=== PATIENT | female | born 1950 | race Caucasian/White ===

== ENCOUNTER 2024-08-14 20:30 | Observation (INO) | payer OTHER, SELFPAY ==
[2024-08-14] VITALS (7 sets, daily range): BP systolic 134–197; BP diastolic 64–85; O2SAT 98; BMI 37.6; BMI 37.0
--- NOTE | 2024-08-14 13:30 | ED.GENMED ---
History of Present Illness
<Becky Macedo PA-C - Last Filed: 08/15/24 10:17>
General
Chief Complaint: Fall
Source: patient
Exam Limitations: none
Time Seen by Provider: 08/14/24 13:04
Nursing documentation reviewed up to this point in time: agreed with
History of Present Illness
History of Present Illness:
Patient is a 74-year-old female with history atrial fibrillation not currently anticoagulated presenting to the emergency department via EMS from home after unwitnessed fall. Patient states that around 11 AM she was attempting to get out of bed to
go to the bathroom when she slipped and fell. Patient states she landed on her bottom and did not strike her head. However�patient was too weak to get up on her own and called 911.
Patient states when EMS arrived they assisted her getting up and then she was able to walk out to the ambulance.
Patient denies any pain in her extremities, headache, neck pain, back pain. Patient denies any preceding chest pain, shortness of breath, dizziness/lightheadedness prior to fall. No urinary symptoms.
Patient does state that she feels generally more weak than her baseline.
Patient stopped her Eliquis about a month ago due to insurance difficulty in receiving medication.
Review of Systems
<Becky Macedo PA-C - Last Filed: 08/15/24 10:17>
Review of Systems
Allergies reviewed?: Yes
All Other Systems: ROS reviewed and negative except as documented in HPI and ROS
Phy Exam
<Becky Macedo PA-C - Last Filed: 08/15/24 10:17>
Physical Exam
Physical Exam:
GENERAL: No acute distress
HEENT: atraumatic, extraocular muscles intact, no signs of entrapment, dentition intact, no other obvious trauma
NECK: no midline tenderness, normal range of motion, no other obvious trauma
BACK: no midline tenderness, no other obvious trauma
CHEST: no tenderness, no flail segment, no subcutaneous emphysema, no other obvious trauma
LUNGS: clear to auscultation bilaterally
CARDIOVASCULAR: regular rate and rhythm
ABDOMEN: soft, non-tender, no masses, no other obvious trauma
PELVIS: stable, no obvious injury
EXTREMITIES: moving all extremities, bilateral upper and lower extremities atraumatic and nontender with full range of motion, distal pulses intact, no other obvious trauma. Tremor of bilateral arms which patient states is chronic and stable
NEUROLOGIC: awake, alert x 3, no focal deficits
Course
<Becky Macedo PA-C - Last Filed: 08/15/24 10:17>
Orders/Labs/Results
Orders:
Orders
08/14/24 13:04
EKG [Electrocardiogram (*1)] Urgent
Reason for Study: Fatigue / Weakness
EKG- Treatment ONCE
08/14/24 13:28
CT Cervical Spine W/o Iv Contr Urgent
Comment:
Reason For Exam: unwitnessed fall
CT Head W/o Iv Contrast Urgent
Comment:
Reason For Exam: unwitnessed fall
08/14/24 13:43
Urinalysis Reflex To Culture Urgent
Date Specimen was Collected: 08/14/24
Time Specimen was Collected: 13:38
Urine Microscopic Reflex Cult Urgent
08/14/24 13:48
Basic Metabolic Panel Urgent
Complete Blood Count/With Diff Urgent
Creatine Phosphokinase Urgent
Comment: ADD ON
08/14/24 14:35
0.9% Sodium Chloride 1000 ml [Nss] 1,000 ml IV BOLUS
08/14/24 Dinner
2000 calorie (17 carb) Diabetic
At Your Request: Full Participation
Does patient need a safe tray?: No
Diabetic Diet: Sodium, 2 Gram
08/14/24 16:45
Case Management Consult ONCE
Case Management Consult: Other
Comment: Pretty assistance
08/14/24 20:20
Admit/Transfer Patient As Directed
Co-Sign Provider:
Level of Care: Observation services
Assign to:: Medical/Surgical
Physician / Group: Htay
Diagnosis: Frequent Falls
08/14/24 20:21
Code Status As Directed
Resuscitation Status: Full Code
PRN Pain Medication Management As Directed
May give lesser potent ordered pain med per pt: Yes
preference::
Protocol:: Medication orders for pain may be administered in a
manner that supports deferring to patient preference
when the pt is:
- Requesting an ordered lesser potent pain medication.
Least to most potent pain medications are defined
as: acetaminophen < NSAID < tramadol < opioids
(morphine, oxycodone, hydromorphone).
- Requesting a lesser dose of the same medication IF
ORDERED.
- Requesting a less intrusive route of administration
if both routes are prescribed by the provider (PO <
IV).
08/14/24 21:32
Acetaminophen [Tylenol] 650 mg PO Q4HPRN PRN
Dextrose 50%-Water [Dextrose 50% Syringe] 12.5 grams IV [id number] PRN
Glucagon [GlucaGen] 1 mg IM PRN PRN
08/14/24 21:32
Activity As Directed
Activity Level: Out of Bed- Chair
Bedside Glucose Monitoring As Directed
Frequency: AC&HS
Additional Instructions:: Change to q6h if pt on TPN, tube feeding or not eating
Vital Signs As Directed
Frequency: Per unit guidelines
Weight As Directed
Frequency: Daily
Ot Eval And Treat Routine
Pt Eval And Treat Routine
Activity Level: Out of Bed-Early Mobility
08/15/24 06:00
Glycohemoglobin (HgbA1c) IN AM
08/15/24 07:30
Insulin Aspart Corrective Low [Novolog Flexpen-Low Resistance] See Protocol SC AC
08/15/24 08:00
Apixaban [Eliquis] 5 mg PO BID
Furosemide [Lasix] 20 mg PO DAILY
Glyburide [Micronase] 5 mg PO DAILY
METFORMIN HCl [Glucophage] 500 mg PO BID@0800,1700
Metoprolol [Lopressor] 12.5 mg PO BID
Abnormal Lab Results
08/14/24 08/14/24
13:43 13:48
WBC 11.3 H 10^3/uL
(4.8-10.8)
Hct 36.1 L %
(37.0-47.0)
Abs Immat Gran (auto) 0.1 H 10^3/uL
(0-0.05)
Absolute Neuts (auto) 9.6 H 10^3/uL
(1.4-6.5)
Neutrophils % 84.3 H %
(42.2-75.2)
Lymphocytes % 11.1 L %
(20.5-51.1)
BUN 27 H mg/dl
(7-17)
Urine RBC 3-6 A /HPF
(0-2)
Urine Bacteria (Reflex) Few A
(Negative)
Urine Albumin (Reflex) 1+ A
(Neg - Trace)
08/14/24 13:48
08/14/24 13:48
Vital Signs
Initial and Last Documented VS:
Initial Vital Signs
Temp Pulse Resp Pulse Ox
97.8 F 57 18 99
08/14/24 13:03 08/14/24 13:03 08/14/24 13:03 08/14/24 13:03
Last Documented Vital Signs
Temp Pulse Resp BP Pulse Ox
98 F 73 20 151/77 96
08/15/24 07:31 08/15/24 07:31 08/15/24 07:31 08/15/24 07:31 08/15/24 07:31
<Ricardo Dailey MD - Last Filed: 08/14/24 15:37>
Orders/Labs/Results
Orders:
Orders
08/14/24 13:04
EKG [Electrocardiogram (*1)] Urgent
Reason for Study: Fatigue / Weakness
EKG- Treatment ONCE
08/14/24 13:28
CT Cervical Spine W/o Iv Contr Urgent
Comment:
Reason For Exam: unwitnessed fall
CT Head W/o Iv Contrast Urgent
Comment:
Reason For Exam: unwitnessed fall
08/14/24 13:43
Urinalysis Reflex To Culture Urgent
Date Specimen was Collected: 08/14/24
Time Specimen was Collected: 13:38
Urine Microscopic Reflex Cult Urgent
08/14/24 13:48
Basic Metabolic Panel Urgent
Complete Blood Count/With Diff Urgent
Creatine Phosphokinase Urgent
Comment: ADD ON
08/14/24 14:35
0.9% Sodium Chloride 1000 ml [Nss] 1,000 ml IV BOLUS
08/14/24 Dinner
2000 calorie (17 carb) Diabetic
At Your Request: Full Participation
Does patient need a safe tray?: No
Diabetic Diet: Sodium, 2 Gram
08/14/24 16:45
Case Management Consult ONCE
Case Management Consult: Other
Comment: Elibettieis assistance
08/14/24 20:20
Admit/Transfer Patient As Directed
Co-Sign Provider:
Level of Care: Observation services
Assign to:: Medical/Surgical
Physician / Group: Htay
Diagnosis: Frequent Falls
08/14/24 20:21
Code Status As Directed
Resuscitation Status: Full Code
PRN Pain Medication Management As Directed
May give lesser potent ordered pain med per pt: Yes
preference::
Protocol:: Medication orders for pain may be administered in a
manner that supports deferring to patient preference
when the pt is:
- Requesting an ordered lesser potent pain medication.
Least to most potent pain medications are defined
as: acetaminophen < NSAID < tramadol < opioids
(morphine, oxycodone, hydromorphone).
- Requesting a lesser dose of the same medication IF
ORDERED.
- Requesting a less intrusive route of administration
if both routes are prescribed by the provider (PO <
IV).
08/14/24 21:32
Acetaminophen [Tylenol] 650 mg PO Q4HPRN PRN
Dextrose 50%-Water [Dextrose 50% Syringe] 12.5 grams IV [id number] PRN
Glucagon [GlucaGen] 1 mg IM PRN PRN
08/14/24 21:32
Activity As Directed
Activity Level: Out of Bed- Chair
Bedside Glucose Monitoring As Directed
Frequency: AC&HS
Additional Instructions:: Change to q6h if pt on TPN, tube feeding or not eating
Vital Signs As Directed
Frequency: Per unit guidelines
Weight As Directed
Frequency: Daily
Ot Eval And Treat Routine
Pt Eval And Treat Routine
Activity Level: Out of Bed-Early Mobility
08/15/24 06:00
Glycohemoglobin (HgbA1c) IN AM
08/15/24 07:30
Insulin Aspart Corrective Low [Novolog Flexpen-Low Resistance] See Protocol SC AC
08/15/24 08:00
Apixaban [Eliquis] 5 mg PO BID
Furosemide [Lasix] 20 mg PO DAILY
Glyburide [Micronase] 5 mg PO DAILY
METFORMIN HCl [Glucophage] 500 mg PO BID@0800,1700
Metoprolol [Lopressor] 12.5 mg PO BID
Abnormal Lab Results
08/14/24 08/14/24
13:43 13:48
WBC 11.3 H 10^3/uL
(4.8-10.8)
Hct 36.1 L %
(37.0-47.0)
Abs Immat Gran (auto) 0.1 H 10^3/uL
(0-0.05)
Absolute Neuts (auto) 9.6 H 10^3/uL
(1.4-6.5)
Neutrophils % 84.3 H %
(42.2-75.2)
Lymphocytes % 11.1 L %
(20.5-51.1)
BUN 27 H mg/dl
(7-17)
Urine RBC 3-6 A /HPF
(0-2)
Urine Bacteria (Reflex) Few A
(Negative)
Urine Albumin (Reflex) 1+ A
(Neg - Trace)
08/14/24 13:48
08/14/24 13:48
Vital Signs
Initial and Last Documented VS:
Initial Vital Signs
Temp Pulse Resp Pulse Ox
97.8 F 57 18 99
08/14/24 13:03 08/14/24 13:03 08/14/24 13:03 08/14/24 13:03
Last Documented Vital Signs
Temp Pulse Resp BP Pulse Ox
98 F 73 20 151/77 96
08/15/24 07:31 08/15/24 07:31 08/15/24 07:31 08/15/24 07:31 08/15/24 07:31
<Becky Macedo PA-C - Last Filed: 08/15/24 10:17>
MDM/Problems Addressed
Differential Diagnosis Includes:
Not limited to: Chronic weakness, cardiac arrhythmia, acute dehydration, viral illness, UTI, hypoglycemia, electrolyte abnormality
MDM/Problems Addressed:
74 year old female presenting following unwitnessed fall at home and generalized weakness. Denies any head strike or LOC. Does have history of atrial fibrillation although currently not anticoagulated secondary to insurance coverage of eliquis.
Patient without any complaints at this time. Vitals stable. Physical exam as above. No evidence of head or neck trauma. Bilateral upper and lower extremities atraumatic and nontender with full ROM. Patient A&O x3 with no focal neurologic deficits.
Strength 5/5 in upper and lower extremities. Will check CT head/neck given unwitnessed fall. Will check basic labs, urine given generalized weakness. PT & Case management consult.
EKG shows junctional rhythm without any acute ischemic changes. Labs noted. Urine shows no signs of infection. CT head/cervical spine without any acute abnormalities. PT evaluated patient and recommends safe to go home - steady transfer and
ambulation. Given patients generalized weakness and instability with frequent falls - offered patient admission for weakness/ possible placement which she declined. Case management has provided coupons for eliquis. Will send 30 day supply to
pharmacy. Patient stable for discharge with PCP f/u and return precautions.
Chronic conditions affecting care:
Diabetes mellitus, atrial fibrillation
Acute Exacerbation and/or Progression of Chronic Illness:
N/A
<Becky Macedo PA-C - Last Filed: 08/15/24 10:17>
*Radiology
Radiology exam reviewed: preliminary read by ED provider and radiology read reviewed
*Pulse Oximetry
Patient hypoxic: no
*EKG
Interpreted by ED Provider?: Yes
EKG Intrepretation Date: 08/14/24
Interpretation: abnormal
Comparison EKG: changes noted
Heart Rate: 60
Rate: normal
Rhythm: junctional
Altha: left axis deviation
Interval: normal QT interval
QRS Pattern: right bundle branch block
Ischemia: no ischemia
*Newborn Photographer Interpretation
Rate: Newborn Photographer- N/A
*Critical Care Note
Total Time (30-74mins, 75-104mins- exclusive of procedures): Not Applicable
<Becky Macedo PA-C - Last Filed: 08/15/24 10:17>
Update Note
Update Note:
Update 7:50 PM: Pending discharge and transport - patient shared with RN that she has no running water at her home currently. Patient now states that she does not feel safe going home and she is concerned she will too weak to get to bathroom or
suffer another fall. Will admit patient for weakness and possible repeat CM consult in morning to discuss placement/ discharge options.
ED Attending Note
<Becky Macedo PA-C - Last Filed: 08/15/24 10:17>
-
Portions of this chart may have been created with voice recognition software.� Occasional wrong word or��sound alike� substitutions may have occurred due to the inherent limitations of voice recognition software.
<Ricardo Dailey MD - Last Filed: 08/14/24 15:37>
ED Attending Note
Patient seen and examined by attending physician: Yes
I performed the substantive portion of visit, reviewed & personally made and approve the management plan that is documented in note by myself or NICOLLE.: Yes
ED Attending Note:
I have seen and evaluated the patient with a neal-zs-fury encounter. I have spoken to the [PA] and involved in the medical history, the physical exam, medical decision making.
Evaluation and management service: agree unless noted differently below.
Results interpretation: agree unless noted differently below.
74-year-old woman presenting to the emergency department for weakness. States that she got up and was too weak and slowly fell. She was able to scoot to a phone when she called 911. On their arrival after they assisted her patient was able to
ambulate. She did not hit her head or lose consciousness. Denies any numbness tingling. No weakness. Currently feels back to her baseline. Does lives at home by herself. At this time patient has no medical complaints. During my evaluation
patient is sitting eating a meal. No signs of trauma on head exam or on her extremities. Abdomen is benign and nontender nondistended. Will check blood work and obtain a urine sample and have physical therapy evaluate patient. Anticipate
discharge
Discharge Plan
Departure
Patient Disposition: Admit
Date of Disposition: 08/14/24
Time of Disposition: 16:45
Presentation/result/management discussed w/ accepting MD/DO: Hospitalist
Patient with high blood pressure during this ER visit?: Yes
Condition: Good
Covid-19: Not Applicable
Discharge Problem:
Fall, Weakness, Ambulatory dysfunction
Interventions
Interventions:
*Risk Screen - Suicide Last Done: 08/14/24 21:50
*General Assessment Last Done: 08/14/24 13:03
*Neglect/Abuse Screening Last Done: 08/14/24 13:03
ED- Fall Risk Assessment Last Done: 08/14/24 13:03
*ED COVID-19 Vaccine History Last Done: 08/14/24 21:50
*Nursing Disposition Last Done: 08/14/24 21:15
ED-Musculoskeletal Assessment Last Done: 08/14/24 13:03
ED- Neurological Assessment Last Done: 08/14/24 13:03
ED-Skin Assessment Last Done: 08/14/24 13:03
Discharge Date and Time
Discharge Date/Time: 08/14/24 21:16
[2024-08-14 14:01] LABS: Urine Albumin 1+ (Neg - Trace); Urine Bilirubin Negative (Negative); Urine Character Clear (Clear); Urine Color Yellow; Urine Glucose Negative (Negative); Urine Ketone Negative (Negative); Urine Leukocyte Negative (Negative); Urine Nitrite Negative (Negative); Urine Occult Blood Negative (Negative); Urine Urobilinogen Negative (Neg - 1+); Urine pH 6.5 (5.0-9.0)
[2024-08-14 14:04] LABS: % Basophils 0.4 % (0-2); % Eosinophils 0.4 % (0-6); % Immature Granulocytes 0.4 % (0-0.5); % Lymphocytes 11.1 % (20.5-51.1); % Monocytes 3.4 % (1.7-9.3); % Neutrophils 84.3 % (42.2-75.2); Absolute Basophils 0.1 10^3/uL (0-0.2); Absolute Immature Granulocytes 0.1 10^3/uL (0-0.05); Absolute Lymphocytes 1.3 10^3/uL (1.2-3.4); Absolute Monocytes 0.4 10^3/uL (0.1-0.6); Absolute Neutrophils 9.6 10^3/uL (1.4-6.5); Hematocrit 36.1 % (37.0-47.0); Hemoglobin 12.3 g/dL (12.0-16.0); Mean Corp Hgb Conc. 34.1 g/dL (33.0-37.0); Mean Corpuscular Hgb 29.1 pg (27.0-31.0); Mean Corpuscular Volume 85.3 fL (81.0-99.0); Mean Platelet Volume 9.9 fL (7.4-10.4); Nucleated Red Blood Cells % 0 %; Platelet Count 229 10^3/uL (130-400); Red Blood Cell Count 4.23 10^6/uL (4.20-5.40); Red Cell Dist. Width 12.6 % (11.5-14.5); White Blood Cell Count 11.3 10^3/uL (4.8-10.8)
[2024-08-14 14:14] LABS: Blood Urea Nitrogen 27 mg/dl (7-17); Calcium 9.7 mg/dl (8.4-10.2); Carbon Dioxide 26 mmol/L (22-30); Chloride 104 mmol/L (98-107); Estimated Creatinine Clearance 70 ml/min; Glucose 74 mg/dl (70-99); Potassium 4.6 mmol/L (3.5-5.1); Sodium 143 mmol/L (135-145); eGFR > 60.00
[2024-08-14 14:15] LABS: Urine Mucus Few
[2024-08-14 14:16] LABS: Urine Squamous Cell 21-25 /LPF (Few)
[2024-08-14 14:18] LABS: Urine Bacteria Few (Negative)
[2024-08-14] MEDS: NSS 1000 IV (15:11)
[2024-08-14 16:43] LABS: Creatine Phosphokinase 86 U/L (30-135)
--- NOTE | 2024-08-14 17:01 | CM ---
Addendum entered by Myla Pace 08/14/24 18:26:
Referral to [facility] placed for patient's water issues in the home.
Addendum entered by Myla Pace 08/14/24 18:09:
Also set up SN and PT eval with [facility].
Addendum entered by Myla Pace 08/14/24 18:07:
Patient was given 2 Eliquis coupons, when discussing how she will be transported to the pharmacy.
Addendum entered by Myla Pace 08/14/24 17:56:
Spoke with lathe setup operator who will send over a message to patient's office about following up with Mar[facility].
Addendum entered by Myla Pace 08/14/24 17:52:
PCP: [facility] in [place], [place].
Addendum entered by Myla Pace 08/14/24 17:44:
CM reviewed chart. Introduced self and role. Patient lives alone. She reported that she felt scared because she wasn't able to get up. She felt like she was going to alone. I asked her if she looked into [employer]. She stated it would be about
200$/month and she not able to affored that. She said she has no more family around. She has someone who does her groceries and brings her gallons of water in order for her sept pump to work.
She said that she receives her medications by mail order. She was only paying $46 for her Eliquis. For some reason, it has increased to $126 and she isn't able to afford it. It was hard to decipher (while she was sharing her story) if the insurance
company stopped sending the medication because of the arteaga increase or if her PCP discontinued it because she shared she could not afford.
Patient stated that she uses [facility] in [place], [place]. Requested for JOSE to send eliquis rx to that pharmacy. Patient stated that she absolutely has no one to drive her. CM explained that she has free rides, for reasons like this, from her
insurance. She shared that she tries not to use too much from the government. THAIS explained these are allotted rides, specifically for her.
THAIS shared above with JOSE. CM will also call patient's doctor's office; she will need an appointment to figure out what anticoagulant is best for her.
Original Note:
CM consult placed due to patient no longer taking her eliquis.
--- NOTE | 2024-08-14 20:23 | HPS.HSE ---
Addendum entered and electronically signed by George Pettit MD 08/14/24 20:41:
I saw and examined the patient.
The PAINTER STRUCTURAL STEEL or PA's note was reviewed and I agree with the note.
Comment:
This note serves as an addendum to the H&P by wardrobe specialty worker NICOLLE Harleen CLARKE
HPI
74F Home alone, HX frequent falls, DMT2, diabetic neuropathy , Prx AF on Eliquis, , HX successful DCCV . HX nl LVEF 55% seen at ER for weakness and recurrent Falls.
- report slipped and fall in the BR. landed on her bottom. Denied hitting head.
- 911 called [facility].
- EMS arrived they assisted her getting up and then she was able to walk out to the ambulance.
Reviewed VS: unremarkable
Vital Signs
Temp Pulse Resp BP Pulse Ox
97.8 F 78 16 134/85 98
08/14/24 13:03 08/14/24 20:03 08/14/24 20:03 08/14/24 20:03 08/14/24 20:03
LE:
Symmetrically moving all extremities
All 4 extremities are atraumatic and nontender with full range of motion,e
Data
08/14/24
13:48
WBC 11.3 H
BUN 27 H
Creatinine 0.9
eGFR > 60.00
HCT: No acute patho
CX spine CT: No CT evidence for an acute posttraumatic abnormality of the cervical spine.
EKG report
JUNCTIONAL RHYTHM
INCOMPLETE RIGHT BUNDLE BRANCH BLOCK
LEFT ANTERIOR FASCICULAR BLOCK
ABNORMAL ECG
WHEN COMPARED WITH ECG OF 29-JUN-2023 10:56,
JUNCTIONAL RHYTHM HAS REPLACED SINUS RHYTHM
INCOMPLETE RIGHT BUNDLE BRANCH BLOCK IS NOW PRESENT
Last hospitalist admission:
Date of Admission: 06/26/23 -Date of Discharge: 07/02/23
ASSESSMENT & PLAN
Recurrent fall without acute complication
Unremarkable labs. NEG HCT. NEG CX spine CT.
HX Multiple falls with admission
Chr gait dysfunction
Suspect DM neuropathy
HX DMT2
HX Prx AF on Eliquis
Home alone and no running water
- PT/OT
- CRM consult for johnathan disposition
- c/w all OP Meds
DVT Px: on chr eliquis
Full code
Obs MS
Original Note:
Family Physician
-
Family Physician: Dina Friend
Chief Complaint
-
Frequent Falls
History of Present Illness
Patient is a 74 y/o female past medical history of paroxysmal atrial fibrillation, and diabetes mellitus who presents with frequent falls. Patient fell earlier today while attempting to get into her wheelchair. She was unable to get up off the
floor and called 911 for assistance. She denies chest pains, palpitations, dizziness or shortness of breath. She denies hitting her head during the event. Patient lives alone and expresses concern about being able to safely return home tonight.
Medical History
Past Medical History
Past Medical History: Reports Other
Additional Past Medical History:
Paroxysmal Atrial Flutter
Diabetes Mellitus, Type II
Diabetic Neuropathy
Past Surgical History: Reports None
Social History
Tobacco: Non-smoker
Alcohol: None
Living: Alone
Family History
Family History: Not pertinent
Allergies / Home Medications
Allergies reflects when Allergies were last updated in [employer].
Home Medications with original date entered in [facility]
Allergy/Medication List:
Allergies
Allergy/AdvReac Type Severity Reaction Status Date / Time
No Known Allergies Allergy Verified 08/14/24 13:05
Home Medications
glyburide 5 mg tablet 5 mg PO DAILY #30 tabs 07/02/23
metformin 500 mg tablet 500 mg PO BID@0800,1700 #60 tabs 07/02/23
apixaban 5 mg tablet (Eliquis) 5 mg PO BID #30 tabs 08/14/24
furosemide 20 mg tablet 20 mg PO DAILY 08/14/24
metoprolol tartrate 25 mg tablet 12.5 mg PO BID 08/14/24
Review of Systems
-
A 12 point ROS was completed and negative except as noted: Yes
Constitutional: Denies Fever or Chills
Respiratory: Denies Cough or Trouble Breathing
Cardiac: Denies Chest Pain or Palpitations
Abdomen/GI: Denies Abdominal Pain, Nausea, Vomiting or Diarrhea
Physical Exam
Vital Signs
Vital Signs
Temp Pulse Resp BP Pulse Ox
97.8 F 78 16 134/85 98
08/14/24 13:03 08/14/24 20:03 08/14/24 20:03 08/14/24 20:03 08/14/24 20:03
Physical Exam
General: Comfortable and Conversant
HEENT: Anicteric and Moist mucous membranes
Respiratory: Clear and Non Labored Respirations
Cardiac: S1/S2 and Regular Rhythm
GI: Soft and Non Tender
Rectal: Deferred by Provider
Musculoskeletal: No Clubbing, No Cyanosis and Other (+1 Non-pitting Bilateral Lower Extremity)
Skin: Warm and Dry
Neuro: Awake, Alert, Oriented and Nonfocal/grossly intact
Psych: Calm
Laboratory Results
-
08/14/24 13:48
08/14/24 13:48
Data Reviewed
-
Lab Data: Labs Reviewed by me
Impression/Plan
-
Ambulatory Dysfunction
-Consult PT/OT
-Consult Case Management
Paroxysmal Atrial Flutter
-Patient stopped taking Eliquis about a month ago due to cost - Resume Eliquis
-Continue Metoprolol for rate control
Diabetes Mellitus, Type II
-Continue metformin and glyburide
-Check HgbA1c
-Monitor sugars and continue coverage insulin
Chronic Lower Extremity Edema
-Continue furosemide
Class 2 Obesity
-Affects all aspects of care
DVT proph: Eliquis
Code Status: Full Code
[2024-08-14 21:27] LABS: Glucose - Point of Care 88 mg/dl (70-99)
--- NOTE | 2024-08-15 00:44 | PTCARENOTE ---
Pt received at 2129. Pt able to stand and pivot from stretcher to bed. Pt AAOx3 no c/o pain and able to make needs known. Pt oriented to room,call you, and TV. POC discussed.
[2024-08-15 06:00] VITALS: BMI 36.8
[2024-08-15 07:31] VITALS: BP 151/77
[2024-08-15 07:45] LABS: Glucose - Point of Care 93 mg/dl (70-99)
[2024-08-15] MEDS: LOPRESSOR 12.5 MG PO ×2 (07:46→20:18)
[2024-08-15] MEDS: MICRONASE 5 MG PO (07:46)
[2024-08-15] MEDS: GLUCOPHAGE 500 MG PO ×2 (07:47→18:19)
[2024-08-15] MEDS: ELIQUIS 5 MG PO ×2 (07:47→20:11)
[2024-08-15] MEDS: LASIX 20 MG PO (07:47)
[2024-08-15 09:28] VITALS: BP 150/66; PULSE 59; O2SAT 97
--- NOTE | 2024-08-15 09:37 | PTOTSP ---
pt currently demonstrates ability to complete simple ADLs, functional transfers, ambulation with supervision to no assistance. no acute OT needs identified, will sign off at this time.
[2024-08-15 11:19] LABS: Glucose - Point of Care 125 mg/dl (70-99)
[2024-08-15 11:26] LABS: Glycohemoglobin (HgbA1c) 5.2 % (4.0-5.6)
--- NOTE | 2024-08-15 12:08 | W.PN.HOSP.TC ---
Today's Communication/Plan
-
PT/OT
Discharge with home PT
Provide Eliquis card
Assessment / Plan
Assessment / Plan
#Ambulatory dysfunction
#Chronic neuropathy
-PT/OT/case management
-Patient prefers home physical therapy
#Paroxysmal Atrial Flutter
-Medications include Eliquis and metoprolol
-Stop taking Eliquis roughly a month ago as she ran out/could not afford
-Will resume Eliquis and provide Eliquis card at discharge
-Heart rates stable
#T2DM with neuropathy
-Hemoglobin A1c here 5.2%; Home medications include metformin and glyburide
-Complicated by bilateral lower extremity neuropathy
-Remains on home medications with ISS and Accu
-Will likely discontinue glyburide at discharge
-Blood glucose goal 1 40�1
#Chronic venous insufficiency
-Continue furosemide
#Class 2 Obesity
-Affects all aspects of care
-BMI 36.8
DVT proph: Eliquis
Diet: Diabetic diet
Code Status: Full Code
Anticipated Discharge: Today
Subjective/Interval History
-
Date of Service: August 15, 2024
Seen and examined at bedside. No acute events reported overnight. AFVSS this morning.
She denies any acute complaints, states she would prefer to do physical therapy at home relative to a SNF
Denies chest pain, dyspnea, fevers or chills, weakness, GI issues, urinary issues, bleeding or bruising.
Objective Data
-
Vital Signs:
Vital Signs
Temp Pulse Resp BP Pulse Ox
98 F 73 20 151/77 96
08/15/24 07:31 08/15/24 07:31 08/15/24 07:31 08/15/24 07:31 08/15/24 07:31
I&O
08/14/24 08/15/24 08/16/24
06:59 06:59 06:59
Intake Total 720 / 720
Balance 720 / 720
Review of Systems
-
History Source: Patient
All other systems: Reviewed and negative
Physical Exam
-
General: No Apparent Distress, Comfortable, Conversant and Obese
HEENT: Normocephalic, Atraumatic and Moist Mucous Membranes
Respiratory: Clear to Auscultation and Non Labored Respirations; Negative Accessory Resp Muscle Use
Cardiac: Regular Rhythm and S1/S2; Negative Murmur, Rub or Gallop
GI: Soft, Nontender and Nondistended
Musculoskeletal: No Clubbing, No Cyanosis and No Edema
Skin: Warm, Dry and Normal Turgor; Negative Rash
Neuro: AO x 3, Nonfocal/Grossly Intact and Central Nerve's Intact
Psych: Calm
Data Reviewed
-
Labs: Labs Reviewed by me and Discussed with Patient
[2024-08-15] MEDS: PEPTO-BISMOL 2 TABLET PO (12:55)
--- NOTE | 2024-08-15 13:38 | CM ---
[facility] letter provided to patient and signed and placed on chart, patient reports that she lives alone in a 2 story home, with 1st floor set up, patient is independent with adl's and ambulation, patient has a walker, rollator, and w/c in home, patient
has a car that she does not drive, rn case manager hospice provided patient with information on [facility] ([facility]), per PT/OT patient has no skilled needs.
Plan; Home today with [facility], rn case manager hospice checked with patient's pharmacy [facility], and cost of Eliquis is $23.40 per month.
Home with VN.
[2024-08-15 13:55] VITALS: BP 156/60
--- NOTE | 2024-08-15 15:19 | VNURNOTE ---
Home Health Liaison spoke with patient to discuss [facility] nurse/therapy, visits, schedule and homebound status. Patient is agreeable and understands that visits at home will be 2-3 x per week to assess and teach medical management. Unclear of a
skilled nurse need, home PT /OT evaluation. Patient is aware that [facility] will contact them for start of care in 1-2 days after discharge from .
[facility] referral accepted in [facility].
[2024-08-15 15:26] VITALS: BP 137/52
[2024-08-15 16:00] LABS: Glucose - Point of Care 82 mg/dl (70-99)
[2024-08-15 20:37] LABS: Glucose - Point of Care 114 mg/dl (70-99)
[2024-08-15 23:55] VITALS: BP 150/56
[2024-08-16 06:00] VITALS: BMI 36.6
[2024-08-16 07:19] LABS: Glucose - Point of Care 76 mg/dl (70-99)
[2024-08-16] MEDS: ELIQUIS 5 MG PO (07:24)
[2024-08-16] MEDS: LOPRESSOR 12.5 MG PO (07:25)
[2024-08-16] MEDS: MICRONASE 5 MG PO (07:25)
[2024-08-16] MEDS: GLUCOPHAGE 500 MG PO (07:26)
[2024-08-16] MEDS: LASIX 20 MG PO (07:26)
[2024-08-16 07:37] VITALS: BP 153/64
--- NOTE | 2024-08-16 09:24 | W.PN.HOSP.TC ---
Today's Communication/Plan
-
Discharge home with PT and visiting nurse
Assessment / Plan
Assessment / Plan
#Ambulatory dysfunction
#Chronic neuropathy
-PT/OT/case management
-Patient prefers home physical therapy
#Paroxysmal Atrial Flutter
-Medications include Eliquis and metoprolol
-Stop taking Eliquis roughly a month ago as she ran out/could not afford
-Will resume Eliquis and provide Eliquis card at discharge
-Heart rates stable
#T2DM with neuropathy
-Hemoglobin A1c here 5.2%; Home medications include metformin and glyburide
-Complicated by bilateral lower extremity neuropathy
-Remains on home medications with ISS and Accu
-Will likely discontinue glyburide at discharge
-Blood glucose goal 1 40�1
#Chronic venous insufficiency
-Continue furosemide
#Class 2 Obesity
-Affects all aspects of care
-BMI 36.8
DVT proph: Eliquis
Diet: Diabetic diet
Code Status: Full Code
Anticipated Discharge: Today
Subjective/Interval History
-
Date of Service: August 16, 2024
Seen and examined at the bedside. No acute events reported overnight. AFVSS this morning
Was seen by PT yesterday, will arrange for home PT and VN
Denies any acute complaints this morning, states she feels much more steady than yesterday
Objective Data
-
Vital Signs:
Vital Signs
Temp Pulse Resp BP Pulse Ox
98.3 F 51 18 153/64 97
08/16/24 07:37 08/16/24 07:37 08/16/24 07:37 08/16/24 07:37 08/16/24 07:37
I&O
08/15/24 08/16/24 08/17/24
06:59 06:59 06:59
Intake Total 720 / 720 960 / 960
Balance 720 / 720 960 / 960
Review of Systems
-
History Source: Patient
All other systems: Reviewed and negative
Physical Exam
-
General: Well Nourished, No Apparent Distress and Comfortable
HEENT: Normocephalic, Atraumatic and Moist Mucous Membranes
Respiratory: Clear to Auscultation and Non Labored Respirations
Cardiac: Regular Rhythm and S1/S2; Negative Murmur
GI: Soft, Nontender, Nondistended and Normal Bowel Sounds
Musculoskeletal: No Clubbing, No Cyanosis and No Edema
Skin: Warm and Dry; Negative Rash
Neuro: AO x 3, Nonfocal/Grossly Intact and Central Nerve's Intact
Psych: Calm
--- NOTE | 2024-08-16 09:26 | W.DCSUMMARY ---
Discharge Summary
Discharge Data
Date of Admission: 08/14/24
Date of Discharge: 08/16/24
-
Pending Results: No
Hospital Course
73-year-old female with T2DM C/B neuropathy, paroxysmal AF on Eliquis, chronic venous insufficiency and leukocytosis that presented to the hospital with ambulatory dysfunction, fall from her bed while trying to get into a wheelchair at home.
Neurological assessment in the hospital was unremarkable. Suspected etiology due to neuropathy and deconditioning with time. Was seen by physical therapy who recommended home with PT. Case management consulted for arranging home services
including PT and visiting nurse. Was given new prescription for Eliquis as she had recently run out and stopped taking. Was encouraged to follow-up with PCP, resources provided for cheaper prescription options.
Discharge Plan
-
Patient Disposition: Home (Routine Discharge)
Discharge Diagnosis/Procedures: Ambulatory dysfunction
Diabetic neuropathy
Condition: Good
Diet: Diabetic, Carb Controlled
Activity: As tolerated
Additional Activity: Exercises per physical therapy
Driving Restrictions: Not until seen by your Dr
Bathing Restrictions: None
Blood Work: None
Others Tests: None
Other Services: PT
Activity Restrictions/Additional Instructions:
Schedule follow-up appointment with your family doctor within 7 days of discharge from the hospital for routine posthospital care
Instructions: Preventing falls in adults, Standing Balance Exercises, Beginner
Referrals:
Dina Friend DO [Family Provider] -
Additional Discharge Medication Instructions: Take Eliquis 5 mg twice daily
Talk to your family doctor about stopping diabetes medications (A1c 5.2% in the hospital)
Prescriptions:
New
Eliquis 5 mg tablet
5 mg PO BID Qty: 30 0RF
Continued
metformin 500 mg Tablet
500 mg PO BID@0800,1700 Qty: 60 1RF
glyburide 5 mg Tablet
5 mg PO DAILY Qty: 30 1RF
furosemide 20 mg Tablet
20 mg PO DAILY
metoprolol tartrate 25 mg Tablet
12.5 mg PO BID
Discharge Orders:
Discharge Patient (As Directed); Ordered 08/16/24
Ordered By: Heath Zuniga
Discharge Date and Time
Print Language: PALESTINIAN
--- NOTE | 2024-08-16 10:09 | CM ---
Addendum entered by Haylie Sandhu 08/16/24 11:32:
[facility] transport.
Original Note:
manager corporate communications reviewed patient's chart and patient insists that she does not have transport to home, patient asked for w/c van and upper caser checked on cost of transport and was informed the cost of w/c transport would be $185, per patient she
cannot afford w/c van. manager corporate communications spoke with patient about a [facility] transfer and this will be arranged by hospital. Per nursing patient will have updated instructions, per physical therapy patient has no skilled needs.
Plan; Home today.
[2024-08-16 11:05] VITALS: BP 134/61
== END 2024-08-16 12:01 | disposition home or self-care (01) ==
LOC: 4 WEST ACU 20:30
PROVIDERS: Physician Assistant; Physician Assistant Medical; ADMITTING PHYSICIAN Internal Medicine; ATTENDING PHYSICIAN Internal Medicine; EMERGENCY PHYSICIAN Student in an Organized Health Care Education/Training Program; FAMILY PHYSICIAN Family Medicine
DX: E11.40 Type 2 diabetes mellitus with diabetic neuropathy, unspecified (principal); R53.1 Weakness; I48.0 Paroxysmal atrial fibrillation; I87.2 Venous insufficiency (chronic) (peripheral); D72.829 Elevated white blood cell count, unspecified; W06.XXXA Fall from bed, initial encounter; R26.2 Difficulty in walking, not elsewhere classified; E66.812 Obesity, class 2; Z68.36 Body mass index [BMI] 36.0-36.9, adult; Z60.2 Problems related to living alone; Z79.84 Long term (current) use of oral hypoglycemic drugs; Z79.899 Other long term (current) drug therapy; Z79.01 Long term (current) use of anticoagulants
CPT/HCPCS: 70450; 72125; 80048; 81003; 81015; 82550; 82962; 83036; 85025; 93005; 96360; 97166; 99285; G0378